=== PATIENT | male | born 1990 | race African-American/Black ===

== ENCOUNTER 2017-11-20 01:19 | Emergency (ER) | payer SELFPAY ==
[~2017-11-20] VITALS: Ht 188 cm; Wt 102.0 kg
[2017-11-20 01:24] VITALS: Ht 188 cm; Wt 102.0 kg
[2017-11-20 02:12] LABS: PLATELET COUNT 247 x10^3mcL (130-400); RED CELL DISTRIBUTION WIDTH 12.9 % (11.5-14.5)
[2017-11-20 02:17] LABS: BASOPHIL % 3.8 % (0-2)
[2017-11-20 02:19] LABS: CALCIUM 8.7 mg/dL (8.5-10.1); CARBON DIOXIDE 26.6 mmol/L (21-32); CHLORIDE SERUM 101 mmol/L (98-107); GFR1 > 60 mL/min; GLUCOSE SERUM 130 mg/dL (74-106); POTASSIUM SERUM 3.7 mmol/L (3.5-5.1); SODIUM SERUM 138 mmol/L (136-145)
[2017-11-20 02:23] LABS: ALBUMIN 4.1 g/dL (3.4-5.0); ALKALINE PHOSPHATASE 58 U/L (46-116); ALT/SGPT 26 U/L (16-63); AST/SGOT 18 U/L (15-37); BILIRUBIN TOTAL 1.01 mg/dL (0.20-1.00); TOTAL PROTEIN, SERUM 7.2 g/dL (6.4-8.2)
[2017-11-20 04:25] LABS: AMPHETAMINE QUAL UR NONE DETECTED (NEG <=1000)
[2017-11-20 06:03] VITALS: BP 124/66
== END 2017-11-20 06:03 | disposition home or self-care (01) ==
LOC: ED 01:19
PROVIDERS: Emergency Medicine
DX: R07.89 Other chest pain (principal); F14.10 Cocaine abuse, uncomplicated; R20.0 Anesthesia of skin
CPT/HCPCS: 83880; J7030; Q0092